=== PATIENT | female | born 1960 | race Caucasian/White ===

== ENCOUNTER 2021-06-12 08:36 | Day surgery (SDC) | payer OTHER ==
[2021-06-10 14:00] VITALS: BMI 28.3
[2021-06-12] MEDS ORDERED: Lidocaine 1% MPF 2 ML VIAL ONE (09:34)
[2021-06-12] MEDS ORDERED: PROPOFOL 40 ML ONE (10:54)
[2021-06-12] MEDS ORDERED: Lidocaine 1% PF 5 ML VIAL ONE (10:54)
[2021-06-12] MEDS ORDERED: PHENYLEPHRINE-NS 100 MCG/ML 10 ML SYRINGE ONE (11:02)
== END 2021-06-12 11:35 | disposition home or self-care (01) ==
LOC: CSHSDC 08:36
PROVIDERS: ATTEND Internal Medicine Gastroenterology
PROC: 0DBP8ZX Excision of Rectum, Via Natural or Artificial Opening Endoscopic, Diagnostic (ICD-10-PCS; principal; 2021-06-12)
PROC: 0DBH8ZX Excision of Cecum, Via Natural or Artificial Opening Endoscopic, Diagnostic (ICD-10-PCS; principal; 2021-06-12)
DX: D12.8 Benign neoplasm of rectum (principal); K57.30 Diverticulosis of large intestine without perforation or abscess without bleeding; I10 Essential (primary) hypertension; R93.5 Abnormal findings on diagnostic imaging of other abdominal regions, including retroperitoneum; E03.8 Other specified hypothyroidism; R10.9 Unspecified abdominal pain; E78.5 Hyperlipidemia, unspecified; E66.9 Obesity, unspecified; Z87.891 Personal history of nicotine dependence; Z79.899 Other long term (current) drug therapy; Z88.0 Allergy status to penicillin; Z88.8 Allergy status to other drugs, medicaments and biological substances
CPT/HCPCS: 88305; J2704